=== PATIENT | male | born 1955 | race Caucasian/White ===

== ENCOUNTER 2017-06-06 16:44 | Observation (INO) | payer OTHER ==
--- NOTE | 2017-06-06 17:21 | RAD ---
PA AND LATERAL OF THE CHEST: INDICATION: Cough and fever. COMPARISON: None. FINDINGS: The lungs are clear. Cardiomediastinal silhouette is within normal limits. There is mild spondylos is of the thoracic spine. IMPRESSION: No acute cardiopulmonary abnormality. POS: [facility]
[2017-06-06 17:45] LABS: #Basophils 0.1 thou/uL (0.0-0.2); #Lymphocytes 1.8 thou/uL (1.20-3.40); #Monocytes 1.1 thou/uL (0.11-0.59); #Neutrophils 9.3 thou/uL (1.40-6.50); %Basophils 0.6 % (0.0-1.0); %Eosinophils 0.3 % (0.0-10.0); %Lymphocytes 14.4 % (21.0-51.0); %Monocytes 8.7 % (0.0-10.0); Hematocrit 51.6 % (42.0-52.0); Mean Platelet Volume 8.7 fL (7.4-10.4); Red Blood Cell (RBC) Count 5.41 mill/uL (4.70-6.10); White Blood Cell (WBC) Count 12.2 thou/uL (4.8-10.8)
[2017-06-06 17:59] LABS: Lactic Acid - Sepsis 1.3 mmol/L (0.5-2.2)
[2017-06-06 18:04] LABS: ALT (SGPT) 23 U/L (8-55); AST (SGOT) 21 U/L (5-34); Alkaline Phosphatase 99 U/L (40-150); Anion Gap 11 mmol/L (10-20); BUN (Urea Nitrogen) 11 mg/dL (8.4-25.7); Calc. Creatinine Clearance 0 mL/min (70-130); Calcium 9.5 mg/dL (7.8-10.44); Carbon Dioxide 25 mmol/L (23-31); Chloride 105 mmol/L (98-107); Estimated GFR-MDRD 62; Globulin 3.4 g/dL (2.4-3.5); Lipase 42 U/L (8-78); Protein, Total 7.8 g/dL (5.8-8.1)
[2017-06-06 18:18] LABS: Bilirubin Negative (Negative); Blood, Urine Negative (Negative); Glucose, Urine (Dipstick) Negative (Negative); Ketone, Urine Negative (Negative); Nitrite Negative (Negative); Protein, Urine (Dipstick) Negative (Neg-Trace); Urobilinogen 0.2 mg/dL (0.2-1.0)
[2017-06-06 19:48] LABS: % Infected Cells W/Parasite No parasites seen
[2017-06-06] MEDS ORDERED: Acetaminophen 325 MG TAB PO PRN (20:41)
[2017-06-06] MEDS ORDERED: HYDROcodone/Acetaminophen 5/325 mg Tablet PO PRN ×2 (20:41)
[2017-06-06] MEDS ORDERED: Ondansetron HCl/PF 4 MG/2 ML Vial IVP PRN (20:41)
[2017-06-06] MEDS ORDERED: Ondansetron ODT 4 MG TAB SL PRN (20:41)
[2017-06-06] MEDS ORDERED: cefTRIAXone\\ROCEPHIN 1 GM, Syringe 0.4 ML in Sterile Water 9.6 ML SLOW IVP SCH (21:00)
[2017-06-06 22:02] VITALS: BMI 24.6
[2017-06-07] MEDS ORDERED: cefTRIAXone\\ROCEPHIN 1 GM in Sterile Water 10 ML SLOW IVP SCH (01:00)
--- NOTE | 2017-06-07 02:30 | HP ---
MISA OF ADMISSION: 06/06/2017 ADMITTING PHYSICIAN: Dr. Yoni Garcia PRIMARY CARE PHYSICIAN: Located in the [place] area. CHIEF COMPLAINT: Fever. HISTORY OF PRESENT ILLNESS: Patient is a 62-year-old gentleman with history of asplenia. The patie nt began to experience cough, nausea, chills, loose stools and sore throat beginning this past Monda y. He also reports that he has been having some headaches. Patient recently traveled to the [facility] and is concerned that he may have developed an infectious process there. He has self- treated with NyQuil and amoxicillin prior to coming to the emergency department. Upon my interview, he reports that he feels somewhat improved, but is still experiencing fever and chills. REVIEW OF SYSTEMS: The following complete review of systems was negative, unless otherwise mentione d in the HPI or below: Constitutional: Weight loss or gain, sense of well-being, ability to conduct usual activities, exer cise tolerance. Skin/Breast: Rash, itching, changes in hair growth or loss, nail changes, breast l umps, tenderness, swelling, nipple discharge. Eyes: Vision, double vision, tearing, blind spots, p ain. ENT/Mouth: Headaches (location, time of onset, duration, precipitating factors), vertigo, lig htheadedness, injury. Vision, double vision, tearing, blind spots, pain, nose bleeding, colds, obstr uction, discharge, dental difficulties, gingival bleeding, dentures, neck stiffness, pain, tendernes s, masses in thyroid or other areas. Cardiovascular: Precordial pain, substernal distress, palpita tions, syncope, dyspnea on exertion, orthopnea, nocturnal paroxysmal dyspnea, edema, cyanosis, hyper tension, heart murmurs, varicosities, phlebitis, claudication. Respiratory: Pain, shortness of july ath, wheezing, stridor, cough, hemoptysis, fever or night sweats. Gastrointestinal: Poor appetite, dysphagia, indigestion, abdominal pain, heartburn, eructation, nausea, vomiting, hematemesis, jaund ice, constipation, or diarrhea, abnormal stools (brandy-colored, tarry, bloody, greasy, foul smelling) , flatulence, hemorrhoids, recent changes in bowel habits. Genitourinary: Urgency, frequency, dysu kody, nocturia, hematuria, polyuria, oliguria, unusual (or change in) color of urine, stones, hesitan cy, change in size of stream, dribbling, acute retention or incontinence, libido, potency. Musculos keletal: Pain, swelling, redness or heat of muscles or joints, limitation, of motion, muscular weak ness, atrophy, cramps. Neurologic/Psychiatric: Convulsions, paralyses, tremor, incoordination, par asthesias, difficulties with memory of speech, sensory or motor disturbances, or muscular coordinati on (ataxia, tremor), emotional problems, anxiety, depression, previous psychiatric care, unusual per ceptions, hallucinations. Allergy/Immunologic: Skin rash, anemia, bleeding tendency, polydipsia, p olyuria, intolerance to heat or cold. PAST MEDICAL HISTORY: Significant for hypertension, splenectomy. PAST SURGICAL HISTORY: Significant for laminectomy, bilateral Lasik surgery, nephrectomy, splenecto my. PSYCHIATRIC HISTORY: None. SOCIAL HISTORY: Patient is a retired guitar instructor, lives with his . Denies drug use, smoking, and also denies alcohol use. DRUG ALLERGIES: No known drug allergies. HOME MEDICATIONS: Neak-zob-hmhtsbs cold symptom medications. He also is using eyedrops for a retin al vessel abnormality. PHYSICAL EXAMINATION: VITAL SIGNS: Temperature 99.7, blood pressure 163/102, pulse 81, respirations 17, satting 96% on ro om air. GENERAL: He is in no acute distress, pleasant, cooperative with excellent insight into his medical condition. HEENT: Head, normocephalic, atraumatic. Eyes, PERRL. Extraocular muscles intact. NECK: Supple, full range of motion. Trachea midline. RESPIRATORY: No rhonchi, no wheezes, no rales, clear to auscultation. CARDIOVASCULAR: Regular rate and rhythm with a systolic ejection murmur grade 2/6. ABDOMEN: Nontender, nondistended. Multiple surgical scars. EXTREMITIES: No clubbing, cyanosis or edema. NEUROLOGIC: Cranial nerves II-XII grossly intact. No focal deficits. LABORATORY DATA AND IMAGES: Malaria smear results negative, no parasites. Influenza screen: Influ monster A negative. Influenza B negative. Urinalysis: Yellow, clear, negative for leukocyte, negativ e for nitrites. CMP shows sodium of 137, potassium 4.1, chloride 105, CO2 of 25, BUN 11, creatinine 1.18, lipase 42, glucose 103, AST 21, ALT 23. Lactic acid 1.3. Chest x-ray shows no acute cardiop ulmonary abnormality. CBC shows a white count of 12.2, hemoglobin 16.8, hematocrit 51.6, platelets 233, 76% neutrophils, 14.4% lymphocytes. ASSESSMENT AND PLAN: 1. Fever of unknown origin. 2. Hypertension. PLAN: The patient will be admitted to observation. We will provide supportive therapy as needed. We will also initiate blood pressure treatment and monitor this. At this point, microbial workup is negative. We will follow him for any untoward developments and treat accordingly.
[2017-06-07 07:41] LABS: #Basophils 0.1 thou/uL (0.0-0.2); #Eosinphils 0.1 thou/uL (0.0-0.7); #Lymphocytes 1.7 thou/uL (1.20-3.40); #Monocytes 1.5 thou/uL (0.11-0.59); #Neutrophils 7.9 thou/uL (1.40-6.50); %Basophils 0.7 % (0.0-1.0); %Eosinophils 1.1 % (0.0-10.0); %Lymphocytes 14.8 % (21.0-51.0); %Monocytes 13.5 % (0.0-10.0); Hematocrit 46.3 % (42.0-52.0); Red Blood Cell (RBC) Count 4.85 mill/uL (4.70-6.10); White Blood Cell (WBC) Count 11.3 thou/uL (4.8-10.8)
[2017-06-07 08:01] LABS: Anion Gap 11 mmol/L (10-20); BUN (Urea Nitrogen) 11 mg/dL (8.4-25.7); Calc. Creatinine Clearance 75 mL/min (70-130); Calcium 9.1 mg/dL (7.8-10.44); Carbon Dioxide 24 mmol/L (23-31); Chloride 106 mmol/L (98-107); Estimated GFR-MDRD 67
[2017-06-07] MEDS ORDERED: HYDROcodone/Acetaminophen 5/325 mg Tablet PO PRN (08:47)
[2017-06-07] MEDS ORDERED: Acetaminophen 500 MG TAB PO PRN (08:47)
[2017-06-07] MEDS ORDERED: Ondansetron ODT 4 MG TAB PO PRN (08:47)
[2017-06-07] MEDS ORDERED: Hydrochlorothiazide 25 MG TAB PO SCH (09:00)
[2017-06-07] MEDS ORDERED: Triamcinolone 40 MG/ML VIAL IM SCH (09:30)
[2017-06-07 11:51] VITALS: BP 132/87; TEMP 98.4
--- NOTE | 2017-06-07 14:07 | DIS ---
DATE OF ADMISSION: 06/06/2017 DATE OF DISCHARGE: 06/07/2017 PRIMARY CARE PHYSICIAN: As listed is none. He has [address] out [address] DISCHARGE DIAGNOSES: 1. Fever in an asplenic patient. 2. Viral bronchitis, acute. 3. Presumed acute bacterial sinusitis. 4. Recent travel with diarrhea, but no blood. 5. Possible hypertension. CONSULTATIONS: None. PROCEDURES: None. HISTORY AND PHYSICAL: Mr. Ward is a pleasant 62-year-old white male with history of asplenia sin ce 1978 and routine vaccinations, who traveled to [place] and he returned about 2 months ago. He beg an to have fevers a couple of days ago, accompanied by sore throat, congestion, and a productive cou gh, but he has not looked at the sputum, as he just coughs up and swallows it again. He presented to the emergency department for evaluation. He was placed on observation for further w orkup, because of his history of asplenia and relatively immunosuppression. HOSPITAL COURSE: The patient was seen and examined. Malaria smear was sent off, and came back nega tive. He was watched overnight after being given a dose of Rocephin. Overnight, he had no fevers a nd his vital signs remained stable. This morning on exam, he had clear lungs. He did have occasion al rhonchi and a rattling cough. He had some sinus pressure over the frontal and maxillary sinuses. I have discussed with the patient a viral pathogen panel was sent off and is currently pending. The patient was otherwise afebrile, feeling better. He was given Kenalog and transitioned to oral L evaquin. He was discharged home in stable condition. PHYSICAL EXAMINATION: The patient was seen and examined on the day of discharge. Discharge plan an d disposition were discussed with the patient and his vekv-mb-teer in the bedside. DISCHARGE MEDICATIONS: 1. Levaquin 500 mg p.o. daily for 7 days. 2. Resume ibuprofen prior to admit. 3. Claritin 10 mg daily pre-admit. 4. Pravachol 20 mg p.o. q.p.m. pre-admit. The patient was encouraged to use [id number] cold remedies to treat other symptoms. FOLLOWUP APPOINTMENTS: Primary care physician within a week. DISCHARGE CONDITION: Stable. DISPOSITION: Being discharged home via private vehicle. Patient was instructed to return to the emergency department or primary care doctor's office if he h as episodes of fever after the next 48 hours.
== END 2017-06-07 13:02 | disposition home or self-care (01) ==
LOC: ERS 16:44 → 2SW 19:59
PROVIDERS: ADMIT Family Medicine; ATTEND Family Medicine
DX: R50.9 Fever, unspecified (principal); J20.8 Acute bronchitis due to other specified organisms; D89.9 Disorder involving the immune mechanism, unspecified; I10 Essential (primary) hypertension; Z79.899 Other long term (current) drug therapy; Z90.5 Acquired absence of kidney; Z90.81 Acquired absence of spleen; Z98.890 Other specified postprocedural states
CPT/HCPCS: 36415; 71020; 80048; 80053; 81003; 83605; 83690; 85025; 85060; 87040; 87086; 87207; 87633; 96372; 96374; A4216; G0378; J0696; J3301